=== PATIENT | male | born 1960 | race Caucasian/White ===

== ENCOUNTER 2017-08-16 23:06 | Emergency (ER) | payer SELFPAY ==
[~2017-08-16] VITALS: Ht 180.3 cm; Wt 74.8 kg
[2017-08-16 23:15] VITALS: BP 124/84
--- NOTE | 2017-08-16 23:19 | PHYS DOC ---
Adult General Chief Complaint Chief Complaint: EYE PROBLEMS HPI HPI Patient is a 57 year old male presents to the emergency department with complaints of right eye discomfort. He states that he was scraping paint and primary is soft but today when he feels as if something went in his eye. He isn' t recalling time. For that. He states he has formed body sensation right eye. No blurred vision, double vision, loss of vision, watery discharge, no photophobia Review of Systems Review of Systems Constitutional: Denies fever or chills [] Eyes: Denies change in visual acuity, right eye redness and discomfort HENT: Denies nasal congestion or sore throat [] Respiratory: Denies cough or shortness of breath [] Cardiovascular: No additional information not addressed in HPI [] GI: Denies abdominal pain, nausea, vomiting, bloody stools or diarrhea [] : Denies dysuria or hematuria [] Musculoskeletal: Denies back pain or joint pain [] Integument: Denies rash or skin lesions [] Neurologic: Denies headache, focal weakness or sensory changes [] Endocrine: Denies polyuria or polydipsia [] Current Medications Current Medications Current Medications Medications (Trade) Dose Ordered Sig/Bro Start Time Stop Time Status Last Admin Dose Admin Fluorescein Sodium (Ful-Elen) 1 strip 1X ONCE 08/16/17 23:30 08/16/17 23:31 DC 08/16/17 23:28 1 STRIP Tetracaine HCl (Tetracaine) 1 drop 1X ONCE 08/16/17 23:30 08/16/17 23:31 DC 08/16/17 23:28 1 DROP Allergies Allergies Allergies Coded Allergies Type Severity Reaction Last Updated Verified No Known Drug Allergies 08/16/17 No Physical Exam Physical Exam Constitutional: Well developed, well nourished, no acute distress, non-toxic appearance. []] Eyes: PERRLA, EOMI, conjunctiva normal, no discharge. Funduscopic exam benign [] Current Patient Data Vital Signs Vital Signs Date Time Temp Pulse Resp B/P (MAP) Pulse Ox O2 Delivery O2 Flow Rate FiO2 08/16/17 23:15 98.3 98 20 97 Room Air 98.3 EKG EKG [] Radiology/Procedures Radiology/Procedures Procedure note: Right eye anesthetized with tetracaine, upper lid everted, no foreign body identified. Fluorosciene applied to right eye, with slit-lamp, corneal abrasion the upper cornea extending from 11 to 1:00.Eye Copiously irrigated.] Course & Med Decision Making Course & Med Decision Making Pertinent Labs and Imaging studies reviewed. (See chart for details) [] Dragon Disclaimer Dragon Disclaimer This electronic medical record was generated, in whole or in part, using a voice recognition dictation system. Departure Departure Impression: Primary Impression: Corneal abrasion Disposition: HOME, SELF-CARE Condition: STABLE Referrals: [facility], Patient Instructions: Eye - Corneal Abrasion Scripts Acetaminophen With Codeine (TYLENOL WITH CODEINE #3 TABLET) 1 Each Tablet 1 TAB PO PRN Q6HRS Y for PAIN, #12 TAB Prov: ELSY HECK APRN 08/16/17 Polymyxin B Sulf/Trimethoprim (POLYTRIM EYE DROPS) 10 Ml Drops 1 DROP EACHEYE Q6HRS for 5 Days, #10 ML Prov: ELSY HECK APRN 08/16/17 Problem Qualifiers Primary Impression: Corneal abrasion Encounter type: initial encounter Laterality: right Qualified Codes: S05.01XA - Injury of conjunctiva and corneal abrasion without foreign body, right eye, initial encounter ELSY HECK APRN Aug 16, 2017 23:19
[2017-08-16] MEDS ORDERED: TETRACAINE 0.5% OPHTH SOLUTION 4ML BOTTLE. OD ONE (23:30)
[2017-08-16] MEDS ORDERED: FLUORESCEIN OPHTH TEST STRIP. OD ONE (23:30)
[2017-08-16] MEDS ORDERED: ACET-704 PO (23:35)
[2017-08-16] MEDS ORDERED: POLY10DR EACHEYE (23:35)
[2017-08-16] MEDS ORDERED: EYE-STREAM OPHTH SOLUTION 120 ML BOTTLE. OD ONE (23:45)
== END 2017-08-16 23:50 | disposition home or self-care (01) ==
LOC: ER 23:06
DX: S05.01XA Injury of conjunctiva and corneal abrasion without foreign body, right eye, initial encounter (principal); X58.XXXA Exposure to other specified factors, initial encounter; Y93.89 Activity, other specified; Y92.89 Other specified places as the place of occurrence of the external cause; Y99.8 Other external cause status
CPT/HCPCS: 99283